=== PATIENT | male | born 1955 | race Caucasian/White ===

== ENCOUNTER 2020-06-13 04:34 | Emergency (ER) | payer MEDICARE, OTHER ==
[~2020-06-13] VITALS: Ht 177.8 cm; Wt 75.0 kg
[2020-06-13] MEDS ORDERED: ACETAMINOPHEN 500 MG TABLET ONE (04:59)
[2020-06-13] MEDS ORDERED: MORPHINE SULFATE 4 MG/ML, 1ML ONE (04:59)
[2020-06-13] MEDS ORDERED: ONDANSETRON 2MG/ML, 2ML ONE (04:59)
[2020-06-13] MEDS ORDERED: MORPHINE SULFATE 4 MG/ML, 1ML IVPush PRN (05:00)
[2020-06-13] MEDS ORDERED: ACETAMINOPHEN 500 MG TABLET PO ONE (05:00)
[2020-06-13] MEDS ORDERED: ONDANSETRON 2MG/ML, 2ML IVPush ONE (05:00)
[2020-06-13] MEDS ORDERED: SODIUM CHLORIDE 0.9% 1,000ML IVBOLUS ONE (05:00)
[2020-06-13] MEDS ORDERED: KETOROLAC 30 MG/1 ML ONE (05:14)
[2020-06-13] MEDS ORDERED: KETOROLAC 30 MG/1 ML IVPush ONE (05:30)
[2020-06-13 05:42] LABS: BASOPHILS # (AUTO) 0.01 x10^3/uL (0-0.1); BASOPHILS % (AUTO) 0 % (0-1); EOSINOPHILS # (AUTO) 0.05 x10^3/uL (0-0.4); EOSINOPHILS % (AUTO) 0 % (1-7); LYMPHOCYTES # (AUTO) 0.79 x10^3/uL (1-3.4); LYMPHOCYTES % (AUTO) 5 % (22-44); MD NO; MEAN CORPUSCULAR HEMOGLOBIN 29.1 pg (27.5-34.5); MEAN CORPUSCULAR HGB CONC 33.4 g/dL (33.2-36.2); MEAN CORPUSCULAR VOLUME 87.2 fL (81-97); MEAN PLATELET VOLUME 7.5 fL (7.4-10.4); MONOCYTES # (AUTO) 1.16 x10^3/uL (0.2-0.8); MONOCYTES % (AUTO) 8 % (2-9); NEUTROPHILS # (AUTO) 12.99 x10^3/uL (1.8-6.8); NEUTROPHILS % (AUTO) 87 % (42-75); PLATELET COUNT 333 x10^3/uL (130-400); RED BLOOD COUNT 5.11 x10^6/uL (4.38-5.82); RED CELL DISTRIBUTION WIDTH 13.3 % (9.4-14.8)
[2020-06-13 05:53] LABS: ALBUMIN 3.5 g/dL (3.4-5.0); ANION GAP 11 mmol/L (5-15); CALCIUM 9.3 mg/dL (8.5-10.1); CHLORIDE 106 mmol/L (98-107); CREATININE 0.87 mg/dL (0.7-1.3)
[2020-06-13 06:45] LABS: MICROSCOPIC INDICATED
--- NOTE | 2020-06-13 07:00 | NUR ---
SBAR received from NOC RN at patient bedside for transfer of care.
[2020-06-13] MEDS ORDERED: CEFTRIAXONE PMX 1GM/50ML 50 ML ONE (07:30)
[2020-06-13] MEDS ORDERED: CEFTRIAXONE PMX 1GM/50ML 50 ML IV ONE (07:30)
--- NOTE | 2020-06-13 07:39 | NUR ---
ISIS HERRERA, VITAL SIGNS WITHIN NORMAL LIMITS, CALL LIGHT WITHIN REACH.
[2020-06-13 07:40] VITALS: BP 112/66
--- NOTE | 2020-06-13 08:28 | NUR ---
Patient given discharge instructions and prescription and they have confirmed that they understand the instructions, no questions. IV removed with tip intact. All patient belongings gathered by patient. Patient ambulatory with steady gait to discharge desk.
== END 2020-06-13 08:29 | disposition home or self-care (01) ==
LOC: ED 05:27
DX: N45.1 Epididymitis (principal); R35.0 Frequency of micturition; D72.829 Elevated white blood cell count, unspecified
CPT/HCPCS: 36415; 76870; 80048; 81001; 82040; 83605; 84145; 85025; 87086; 96361; 96365; 96375; 99284; J0696; J1885; J2270; J2405; J7030